=== PATIENT | male | born 1955 | race African-American/Black ===

== ENCOUNTER 2019-10-06 00:37 | Outpatient (CLI) | payer OTHER, SELFPAY ==
[2019-10-06 16:19] LABS: SARS-CoV-2 RNA PCR Negative
== END 2019-10-06 00:38 | disposition home or self-care (01) ==
LOC: ANHCOVIDDT 00:37
PROVIDERS: PCP Family Medicine; Visit Provider Internal Medicine Gastroenterology
DX: Z01.818 Encounter for other preprocedural examination (principal); Z11.59 Encounter for screening for other viral diseases
CPT/HCPCS: 87635; C9803; U0003

== ENCOUNTER 2019-10-09 00:18 | Day surgery (SDC) | payer OTHER, SELFPAY ==
[2019-10-03 13:47] VITALS: BMI 34.1
[2019-10-09 07:35] VITALS: BP 140/105; PULSE 113; RESP 18; TEMP 35.8; O2SAT 98
[2019-10-09] MEDS: LACTATED RINGERS 1,000 ML 150 ML IV CONT (07:51)
[2019-10-09 07:54] LABS: Glucose Point of Care 126 (65-105)
--- NOTE | 2019-10-09 08:00 | WPDANESEPPF ---
Anes - Initial Pre Proc Eval Procedure: Operation Date: 10/09/19 08:45 Proposed Procedures p Screening Colonoscopy - Travis Umaña MD Date/Time: 10/09/19 08:00 Surgeon: Travis Umaña MD Pre Op Diagnosis: Neoplasm Screening Patient Data Age: 63 Gender: M Height: 1.78 m Weight: 103.8 kg Last Vital Signs Temp 35.8 C L 10/09/19 07:35 Pulse 113 H 10/09/19 07:35 Resp 18 10/09/19 07:35 BP 140/105 H 10/09/19 07:35 Pulse Ox 98 10/09/19 07:35 Allergies Allergy/AdvReac Type Severity Reaction Status Date / Time atropine [From ] Allergy Mild Unknown Verified 10/09/19 07:34 hyoscyamine [From ] Allergy Mild Unknown Verified 10/09/19 07:34 phenobarbital [From ] Allergy Mild Unknown Verified 10/09/19 07:34 scopolamine [From ] Allergy Mild Unknown Verified 10/09/19 07:34 Home Medications Medication Instructions Recorded Confirmed Type lisinopril 20 1 tablet PO DAILY #90 tablet 09/27/19 10/09/19 Rx mg-hydrochlorothiazide 25 mg tablet amlodipine [Norvasc] 5 mg PO DAILY 10/03/19 10/09/19 History atorvastatin [Lipitor] 10 mg PO QPM 10/03/19 10/09/19 History metformin [Glucophage] 1,000 mg PO BID 10/03/19 10/09/19 History peg 3350-electrolytes 236 240 ml PO Q10M #4000 ml 10/05/19 Rx gram-22.74 gram-6.74 gram-5.86 gram solution Laboratory Tests 10/09/19 07:50 POC Capillary Glucose 126 mg/dl H mg/dl (65-105) Patient hx anesthesia problems: none Family hx anesthesia problems: none PMFSH Past Medical History Medical History (Updated 10/09/19 @ 08:02 by Valentin Roman MD) Allergies Diabetes Essential (primary) hypertension Hypercholesterolemia Obesity Seasonal allergic rhinitis Surgical History Surgical History No pertinent past surgical history Social History Social History (Reviewed 09/27/19 @ 14:28 by Kim Stephens Smoking status: Never smoker Second hand tobacco smoke exposure: No Alcohol intake: never Substance use: never Substance use type: does not use Gender identity (if verbalized by the patient): Male Sexual Orientation (if Verbalized by the Patient): Straight or Heterosexual Anes - Eval Final PreProcedure Day of Procedure 10/09/19 08:00 Patient weight: obese Heart: regular rate and rhythm Lungs: clear to auscultation and normal air movement Airway: Mallampati scale class II Neurological: alert and oriented Last oral intake: >/= 8 hours ASA classification: III Emergent: no Anesthetic plan: proceed Anesthesia type and monitoring: general GIVS Informed Consent: The patient's anesthetic plan and its attendant risks and benefits were discussed with the patient/family/POA. Questions were solicited and answers provided to the satisfaction of the patient/family/POA.
--- NOTE | 2019-10-09 08:41 | PM.HPGS ---
History of Present Illness History of Present Illness Consent: Risks, benefits, and alternatives have been discussed and questions answered. Patient agrees to proceed with procedure. Chief complaint: Neoplasm Screening Narrative: Sang Clark is a 63 year old male here for first screening colonoscopy Review of Systems Constitutional: Constitutional: Denies headache(s) and Denies weakness Eyes: Eyes: Denies blurry vision ENT: Reports Normal hearing present, Denies headache(s) and Denies neck pain Cardiovascular: Cardiovascular: Denies chest pain and Denies dyspnea Respiratory: Respiratory: Denies dyspnea Gastrointestinal: Gastrointestinal: Reports no additional gastrointestinal complaints Genitourinary: Genitourinary: Denies dysuria Musculoskeletal: Musculoskeletal: Denies neck pain Integumentary/Breasts: Skin/Breast: Denies dry skin Neurologic: Reports Normal hearing present, Denies headache(s) and Denies weakness Psychiatric: Psychiatric: Denies anxiety Endocrine: Endocrine: Denies change in body appearance Hematologic/Lymphatic: Hematologic/Lymphatic: Denies easy bleeding Allergic/Immunologic: Allergic/Immunologic: Denies urticaria PMF Past Medical History Medical History (Updated 10/09/19 @ 08:42 by Travis Umaña MD) Allergies Colon cancer screening Diabetes Essential (primary) hypertension Hypercholesterolemia Obesity Seasonal allergic rhinitis Surgical History Surgical History No pertinent past surgical history Social History Social History Smoking status: Never smoker Second hand tobacco smoke exposure: No Alcohol intake: never Substance use: never Substance use type: does not use Gender identity (if verbalized by the patient): Male Sexual Orientation (if Verbalized by the Patient): Straight or Heterosexual Meds Home Medications and Allergies Home Medications Medication Instructions Recorded Confirmed Type lisinopril 20 1 tablet PO DAILY #90 tablet 09/27/19 10/09/19 Rx mg-hydrochlorothiazide 25 mg tablet amlodipine [Norvasc] 5 mg PO DAILY 10/03/19 10/09/19 History atorvastatin [Lipitor] 10 mg PO QPM 10/03/19 10/09/19 History metformin [Glucophage] 1,000 mg PO BID 10/03/19 10/09/19 History peg 3350-electrolytes 236 240 ml PO Q10M #4000 ml 10/05/19 Rx gram-22.74 gram-6.74 gram-5.86 gram solution Allergies Allergy/AdvReac Type Severity Reaction Status Date / Time atropine [From ] Allergy Mild Unknown Verified 10/09/19 07:34 hyoscyamine [From ] Allergy Mild Unknown Verified 10/09/19 07:34 phenobarbital [From ] Allergy Mild Unknown Verified 10/09/19 07:34 scopolamine [From ] Allergy Mild Unknown Verified 10/09/19 07:34 Vital Signs Vital Signs - 24 hr 10/09/19 07:35 Temperature 96.5 F L Pulse Rate 113 H Respiratory Rate 18 Blood Pressure 140/105 H Pulse Oximetry 98 Exam Const: General: comfortable and no acute distress HENMT: General nose exam: Normal nares present Eyes: General: appearance normal, both eyes and all related structures Neck: Neck: no JVD Resp: Auscultation: clear to auscultation bilaterally Cardio: Rate: regular rate Rhythm: regular rhythm GI: Inspection: non-distended GI Palp: Yes Soft to palpation Skin: General skin exam: normal color Neuro: General: gait normal Speech: normal speech Extrem: General: normal to inspection Psych: Mental Status: mental status grossly normal Assessment and Plan Assessment and plan (1) Colon cancer screening: Code(s): Z12.11 - Encounter for screening for malignant neoplasm of colon Status: Acute Assessment and Plan: will proceed with colonoscopy (2) Diabetes: Code(s): E11.9 - Type 2 diabetes mellitus without complications Status: Acute (3) Essential (primary) hypertension:
--- NOTE | 2019-10-09 08:50 | SUR.OPER ---
0876 UPDATED FAMILY ([facility]) TAKING PATIENT TO PROCEDURE ROOM
[2019-10-09 09:06] VITALS: BP 139/81; PULSE 97; RESP 18; O2SAT 96
[2019-10-09 09:16] VITALS: BP 90/55; PULSE 94; RESP 16; O2SAT 96
[2019-10-09 09:26] VITALS: BP 112/49; PULSE 90; RESP 18; O2SAT 98
[2019-10-09 09:29] LABS: Glucose Point of Care 119 (65-105)
== END 2019-10-09 09:48 | disposition home or self-care (01) ==
PROVIDERS: PCP Family Medicine; Visit Provider Internal Medicine Gastroenterology
PROC: 0DJD8ZZ Inspection of Lower Intestinal Tract, Via Natural or Artificial Opening Endoscopic (ICD-10-PCS; CPT 45378; principal; 2019-10-09 08:45)
DX: Z12.11 Encounter for screening for malignant neoplasm of colon (principal); K63.5 Polyp of colon; K57.30 Diverticulosis of large intestine without perforation or abscess without bleeding; K64.8 Other hemorrhoids; I10 Essential (primary) hypertension; E11.9 Type 2 diabetes mellitus without complications; E78.00 Pure hypercholesterolemia, unspecified; E66.9 Obesity, unspecified; Z68.32 Body mass index [BMI] 32.0-32.9, adult; Z79.84 Long term (current) use of oral hypoglycemic drugs
CPT/HCPCS: 45385; 88305; J2704; J7120

== ENCOUNTER 2022-04-02 09:55 | Outpatient (CLI) | payer OTHER, SELFPAY ==
[2022-04-02 19:07] LABS: Kit Draw Collected
== END 2022-04-02 09:56 | disposition home or self-care (01) ==
LOC: ANHGOSHLAB 09:56
PROVIDERS: PCP Family Medicine; Visit Provider Nurse Practitioner
DX: E11.9 Type 2 diabetes mellitus without complications (principal); E78.5 Hyperlipidemia, unspecified; E55.9 Vitamin D deficiency, unspecified; Z12.5 Encounter for screening for malignant neoplasm of prostate; I10 Essential (primary) hypertension
CPT/HCPCS: 36415

== ENCOUNTER 2022-09-07 09:26 | Outpatient (CLI) | payer OTHER, SELFPAY ==
[2022-09-07 10:41] LABS: Kit Draw Collected
== END 2022-09-07 09:27 | disposition home or self-care (01) ==
LOC: ANHGOSHLAB 09:27
PROVIDERS: PCP Family Medicine; Visit Provider Nurse Practitioner
DX: E78.5 Hyperlipidemia, unspecified (principal); E11.9 Type 2 diabetes mellitus without complications; I10 Essential (primary) hypertension
CPT/HCPCS: 36415

== ENCOUNTER 2024-03-22 08:54 | Outpatient (CLI) | payer MEDICARE, OTHER, SELFPAY ==
[2024-04-15 13:12] VITALS: BMI 29.2
--- NOTE | 2024-04-15 13:12 | WPDHOMESLEEP ---
Sleep Study - Home Unattended Date of Study: 03/22/24 Ordering Provider: Jay Barry MD Interpreting Provider: Darling Garcia DO Home Sleep Study Type: Watch PAT Height: 1.8 m Weight: 95.254 kg Body Mass Index: 29.2 Neck Circumference (inches): 18.25 Frederick: 12 Reason for Sleep Study Daytime hypersomnia Sleep History The patient is a 68-year-old male that had a sleep study ordered by his primary care physician for evaluation of sleep apnea. The patient snores loudly, has excessive daytime sleepiness as well as difficulty falling and staying asleep. The patient denies choking or gasping at night. He denies having interruptions and breathing while asleep. He denies having trouble breathing on his back. He denies morning headaches. 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 He denies nocturnal heartburn. He urinates twice throughout the night. He does have difficulty returning to sleep if he wakes up throughout the night. He denies any hypnotic or sedative use. He denies feeling anxious about sleep. He does feel tired or sleepy during the day. He does feel tired in the morning. He does have the urge to fall asleep during the day. He denies feeling drowsy while driving. He denies sleep paralysis, cataplexy and hypnagogic / hypnopompic hallucinations. He denies clenching or grinding his teeth. He denies kicking or jerking his legs excessively. He denies having a restless feeling in his legs. He goes to bed 11:30 p.m. on both weekdays and weekends. It takes him 90 minutes to fall asleep. He gets 6 hours of sleep per night. His sleep is somewhat more restorative on his days off. He denies taking any planned naps. He denies dream enactment behavior. He denies sleep walking. He denies consuming caffeinated beverages throughout the day. He denies tobacco and alcohol use. He denies exercising on a regular basis. 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 Smoking status: Never smoker Second hand tobacco smoke exposure: No Alcohol intake: never Substance use: never Substance use type: does not use Lack of Transportation: No Lack of Food: Never True Current Housing: I Have Housing Concerned About Future Housing: No Difficulty Paying Gas/Electric Bills: No Difficulty Paying for Meds: No Currently Unemployed: No Education: Master's Degree or Higher Difficulty w/ Childcare or Family Care: No Living arrangements: alone Occupation/Education: occupation Additional occupation/education comments: [employer] for 35 yrs. Gender identity (if verbalized by the patient): Male Sexual Orientation (if Verbalized by the Patient): Straight or Heterosexual Agree to blood products: Yes Medications Home Medications ?Medication ?Instructions ?Recorded ?Confirmed ?Type loratadine 10 mg tablet (Claritin) 10 mg PO DAILY 04/02/22 12/28/23 History albuterol sulfate 90 mcg/actuation 1 puff inhalation Q4H PRN 03/01/23 12/28/23 Rx aerosol inhaler (ProAir HFA) shortness of breath or wheezing #8.5 grams blood sugar diagnostic #100 ea 04/05/23 12/28/23 Rx blood-glucose meter (Blood Glucose #1 ea 04/05/23 12/28/23 Rx Monitoring kit) blood-glucose sensor (Dexcom G7 #4 ea 04/05/23 12/28/23 Rx Sensor device) cholecalciferol (vitamin D3) 50 50 mcg PO DAILY 04/05/23 12/28/23 History mcg (2,000 unit) tablet fluticasone propionate 50 1 spray intranasal DAILY 04/05/23 12/28/23 History mcg/actuation nasal spray,suspension lancets 33 gauge #100 ea 04/05/23 12/28/23 Rx amlodipine 5 mg tablet (Norvasc) 5 mg PO DAILY #90 tabs 10/04/23 12/28/23 Rx lisinopril 20 1 tablet PO DAILY #90 tabs 10/04/23 12/28/23 Rx mg-hydrochlorothiazide 25 mg tablet tirzepatide 15 mg/0.5 mL 15 mg (0.5 mL) .Route WEEKLY #2 mL 03/27/24 Rx subcutaneous pen injector atorvastatin 10 mg tablet 10 mg PO QHS #90 tabs 04/10/24 Rx metformin 500 mg tablet,extended 1,000 mg (2 x 500 mg) PO BID #360 04/10/24 Rx release 24 hr tabs Sleep Procedure The sleep study was completed using AttenexT a technically adequate device with seven channels: peripheral arterial tone, actigraphy, body position, snore, respiratory movement, pulse oximetry, sleep staging, and heart rate. Prior to using the device, the patient received verbal and written instructions for its application and was provided with the help desk phone number for additional telephonic instruction with 24-hour availability of qualified personnel to answer questions. The study was scored using CMS guidelines. Sleep Architecture The total recording time is 7 hrs, 16 min. The total sleep time is 6 hrs, 30 min. Sleep latency is 25 minutes. REM latency is 212 minutes. The patient had 7 episodes of waking. Sleep architecture shows 16.0% deep sleep, 61.3% light sleep, and (as % Total Sleep Time) showed NREM (Light 61.3%; Deep 16.0%), and a 22.7% stage REM. The patient spent 65.1% of total sleep time in the supine position. Sleep efficiency was 89.45. Respiratory Analysis The overall AHI (pAHI 4%:) is 16.2. The central AHI is 4.1. The AHI was 18.8 in NREM and 7.6 in REM sleep. The AHI was 23.5 in Supine and 2.3 in Non-supine sleep. Percent of Pablo Segura respirations is 0.0. Oximetry Data The oxygen desaturation index (REED 4%:) is 16.2. The mean saturation is 95%, and the lowest saturation is 84%. Time spent with saturation < 88% is 2.9 minutes. Snoring Profile Snoring average intensity is 42 dB. The patient snored above 45 decibels for 53.9 minutes, 13.8% of sleep time. Cardiac Profile The average pulse rate is 74 beats per minutes. The lowest pulse rate is 47 bpm. The highest pulse rate reported is 112 bpm. Atrial fibrillation was not detected. Premature beats occur 0.2 per minute. Assessment and Plan Assessment and Plan (1) STEVE (obstructive sleep apnea): Code(s): G47.33 - Obstructive sleep apnea (adult) (pediatric) Status: Acute Assessment and Plan: The patient had an overall AHI of 16.2 with desaturation down to 84%. This is consistent with moderate sleep apnea. The patient had 26 central apneas resulting in a central apnea index of 4.1 which is on the higher end of normal. Due to the elevated number of central apneas, the patient is not an ideal candidate for AutoPAP. AutoPAP can increase the frequency and severity of central apneas. I recommend that the patient have a CPAP titration with the use of a hypnotic (Lunesta 2-3 mg or Ambien 5-10 mg) to ensure we obtain enough sleep data find an optimal pressure. Data The data obtained during this sleep study is adequate for interpretation. Certification This sleep study has been reviewed by a board certified sleep medicine physician.
== END 2024-03-23 15:08 | disposition home or self-care (01) ==
LOC: ANHCSM 08:55
PROVIDERS: PCP Family Medicine; Visit Provider Family Medicine
DX: G47.33 Obstructive sleep apnea (adult) (pediatric) (principal); R40.0 Somnolence
CPT/HCPCS: 95800

== ENCOUNTER 2024-08-16 08:45 | Outpatient (CLI) | payer OTHER, MEDICARE, SELFPAY ==
--- OUTSIDE RECORDS SUMMARY | 2024-08-16 08:58 | XMS_ITS | Clinical Summary ---
Author Organization [facility] Address [address] [place] [address] Care Team Providers Care Disc Inspector Name Role Phone Unavailable Primary Care Provider Unavailabl e Source Comments [facility],non-owned Affiliates and Associated Physician Practices is amultiple site organization consisting of ambulatory clinics and hospital sitesin [place], [place], [place] and [place]. This disclosure is being madepursuant to the Care Everywhere program and may not contain all information available regarding this patient. Last updated 18.[facility] Allergies Active Allergy Reactions Criticality Noted Date Comments 05/17/2016 Medications * Be aware that medications may not be up to date on this document. Alwaysverify current medications with the patient. amLODIPine (NORVASC) 5 MG tablet Take 1 Tab by mouth once daily 7 Tab 05/17/2016 Active Social History Tobacco Use Types Packs/Day Years Used Date Smoking Tobacco: Never Alcohol Use Standard Drinks/Week Comments No 0 (1 standard drink = 0.6 oz pur e alcohol) Sex and Gender Information Value Date Recorded Sex Assigned at Not on file Legal Sex Male 1:52 PM [employer] Gender Identity Not on file Sexual Orientation Not on file Last Filed Vital Signs Vital Sign Reading Time Taken Comments Blood Pressure 155/91 05/17/2016 2:00 PM [employer] Pulse - - Temperature 36.7 C (98.1 F) 05/17/2016 2:03 PM [employer] Respiratory Rate 14 05/17/2016 2:03 PM [employer] Oxygen Saturation 99% 05/17/2016 2:00 PM [employer] Inhaled Oxygen Concentration - - Weight 81.6 kg (180 lb) 05/17/2016 2:03 PM [employer] Height 180.3 cm (5' 11 ) 05/17/2016 2:03 PM [employer] Body Mass Index 25.1 05/17/2016 2:03 PM [employer] Plan of Treatment Health Maintenance Due Date Last Done Comments COLOGUARD (AGES 45-75) - COL ON CA SCREENING 1954 COLON MONITORING 1954 COLONOSCOPY - COLON CA SCREENING 1954 CT COLONOGRAPHY - COLON CA SCREENING 1954 Colorectal Cancer Screening 1954 FIT - COLON CA SCREENING 1954 FLEX SIG - COLON CA SCREENING 1954 LIPID TESTING 1954 HEPATITIS C SCREENING 11/12/1972 DTAP/TDAP/TD VACCINES (1 - Tdap) 1973 PNEUMOCOCCAL VACCINE 50+ (1 of 1 - PCV) 2004 ZOSTER VACCINE (1 of 2) 2004 COVID-19 VACCINE (1 - 2023-2 5 season) 2023 DEPRESSION SCREENING 04/18/2024 INFLUENZA VACCINE (Season Ended) 2024 Respiratory Syncytial Virus (RSV) Vaccine Pt: or over 60 yrs (1 - 1-dose 75+ series) 2029 HEPATITIS B VACCINE Aged Out No longe r eligible based on patient's age to complete this topic HIB VACCINE Aged Out No longer eligi ble based on patient's age to complete this topic HPV VACCINE Aged Out No longer eligi ble based on patient's age to complete this topic MENINGOCOCCAL (Group B) VACC INE SHARED DECISION-MAKING Aged Out No longer eligibl e based on patient's age to complete this topic MENINGOCOCCAL GROUPS A/C/Y/W VACCINE Aged Out No longer eligible b ased on patient's age to complete [place] [address] [facility]
[2024-09-13 12:45] VITALS: BMI 28.7
--- NOTE | 2024-09-13 12:45 | WPDSLEEPSTUD ---
Sleep Study Date of Study: 08/16/24 Ordering Provider: Jay Barry MD Interpreting Physician: Darling Garcia DO Sleep Study Type: CPAP Titration Height: 1.78 m Weight: 90.718 kg Body Mass Index: 28.7 Neck Circumference (inches): 17 [place]: 12 Reason for Sleep Study Watch[employer] home sleep test on 03/22/2024 showed an overall AHI of 16.2 with desaturation down to 84%. BARB of 4.1. Sleep History The patient is a 68-year-old male that had a sleep study ordered by his primary care physician for evaluation of sleep apnea. The patient snores loudly, has excessive daytime sleepiness as well as difficulty falling and staying asleep. The patient denies choking or gasping at night. He denies having interruptions and breathing while asleep. He denies having trouble breathing on his back. He denies morning headaches. He does have a drier and pulverizer tender sore mouth/ throat in the morning. He denies nocturnal heartburn. He urinates twice throughout the night. He does have difficulty returning to sleep if he wakes up throughout the night. He denies any hypnotic or sedative use. He denies feeling anxious about sleep. He does feel tired or sleepy during the day. He does feel tired in the morning. He does have the urge to fall asleep during the day. He denies feeling drowsy while driving. He denies sleep paralysis, cataplexy and hypnagogic / hypnopompic hallucinations. He denies clenching or grinding his teeth. He denies kicking or jerking his legs excessively. He denies having a restless feeling in his legs. He goes to bed 11:30 p.m. on both weekdays and weekends. It takes him 90 minutes to fall asleep. He gets 6 hours of sleep per night. His sleep is somewhat more restorative on his days off. He denies taking any planned naps. He denies dream enactment behavior. He denies sleep walking. He denies consuming caffeinated beverages throughout the day. He denies tobacco and alcohol use. He denies exercising on a regular basis. 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 Smoking status: Never smoker Second hand tobacco smoke exposure: No Alcohol intake: never Substance use: never Substance use type: does not use Lack of Transportation: No Lack of Food: Never True Current Housing: I Have Housing Concerned About Future Housing: No Difficulty Paying Gas/Electric Bills: No Difficulty Paying for Meds: No Currently Unemployed: No Education: Master's Degree or Higher Difficulty w/ Childcare or Family Care: No Living arrangements: alone Occupation/Education: occupation Additional occupation/education comments: [employer] for 35 yrs. Gender identity (if verbalized by the patient): Male Sexual Orientation (if Verbalized by the Patient): Straight or Heterosexual Agree to blood products: Yes Medications Home Medications ?Medication ?Instructions ?Recorded ?Confirmed ?Type loratadine 10 mg tablet (Claritin) 10 mg PO DAILY 04/02/22 05/09/24 History albuterol sulfate 90 mcg/actuation 1 puff inhalation Q4H PRN 03/01/23 05/09/24 Rx aerosol inhaler (ProAir HFA) shortness of breath or wheezing #8.5 grams blood sugar diagnostic #100 ea 04/05/23 05/09/24 Rx blood-glucose meter (Blood Glucose #1 ea 04/05/23 05/09/24 Rx Monitoring kit) cholecalciferol (vitamin D3) 50 50 mcg PO DAILY 04/05/23 05/09/24 History mcg (2,000 unit) tablet fluticasone propionate 50 1 spray intranasal DAILY 04/05/23 05/09/24 History mcg/actuation nasal spray,suspension lancets 33 gauge #100 ea 04/05/23 05/09/24 Rx atorvastatin 10 mg tablet 10 mg PO QHS #90 tabs 04/10/24 05/09/24 Rx metformin 500 mg tablet,extended 1,000 mg (2 x 500 mg) PO DAILY 05/10/24 Rx release 24 hr #180 tabs amlodipine 5 mg tablet (Norvasc) 5 mg PO DAILY #90 tabs 05/28/24 Rx azithromycin 250 mg tablet See Rx Instructions PO .COMPLEX #6 06/05/24 Rx (Zithromax Z-Yasmany) tabs lisinopril 20 1 tablet PO DAILY #90 tabs 06/06/24 Rx mg-hydrochlorothiazide 25 mg tablet tirzepatide 15 mg/0.5 mL 15 mg (0.5 mL) subcut WEEKLY #6 mL 06/06/24 Rx subcutaneous pen injector blood-glucose sensor (Dexcom G7 #9 ea 07/04/24 Rx Sensor device) blood-glucose sensor (FreeStyle #6 ea 07/06/24 Rx Imelda 3 Sensor device) Sleep Procedure A full night CPAP Titration using the [employer] multi-channel system recorded the standard physiologic parameters including EEG, EOG, submentalis EMG, anterior tibialis EMG, EKG, body position, nasal and oral airflow using nasal pressure sensor and thermistor.? Respiratory parameters of chest and abdominal movements were recorded with Respiratory Inductance Plethysmography belts. Oxygen saturation was recorded by pulse oximetry. Video monitoring was also performed. Sleep stages, periodic limb movements, and EEG arousals were scored in 30 second epochs according to the criteria of the AASM Scoring Manual. The Apnea-Hypopnea Index was calculated using CMS guidelines for definition of hypopnea with 4% O2 desaturations while scoring respiratory events. Sleep Architecture The total recording time was 432.8 minutes.? The total sleep time was 374.0 minutes. Sleep latency was 6.4 minutes. REM latency was 91.5 minutes. Sleep efficiency was 86.4%. The patient had 23 awakenings for an awakening index of 3.7. Wake after Sleep Onset time was 52.0 minutes. The patient spent 22.0 minutes, 5.9% of total sleep time in Stage N1. The patient spent 219.5 minutes, 58.7% in Stage N2. The patient spent 16.5 minutes, 4.4% in Stage N3. The patient spent 116.0 minutes, 31.0% in Stage REM. Respiratory Analysis The patient had 36 hypopneas, 60 obstructive apneas and 1 central apnea for an overall Apnea Hypopnea Index of 15.6 events per hour. The REM Apnea Hypopnea Index was 19.7. The NREM Apnea Hypopnea Index was 13.7. The patient had a Central Apnea Hypopnea Index of 0.2. There was no evidence of Pablo-Segura Respirations. The patient was started on CPAP 5 cm H2O and titrated to CPAP 14 cm H2O due to obstructive apneas and hypopneas. The patient was able to fall asleep starting on CPAP 5 cm H2O. The patient was able to achieve REM sleep starting on CPAP 7 cm H2O. The patient was able to achieve a residual AHi less than 5 with both NREM and REM sleep in the supine position on the final pressure setting. On CPAP 14 cm H2O, the patient spent 39 minutes in NREM and 74.5 minutes in REM with 1 central apnea and 3 hypopneas, resulting in an AHI of 2.1. The patient had a sleep efficiency of 81.9% on this pressure setting. Arousals There were 142 total arousals for an arousal index of 22.8. There were 38 spontaneous arousals for an index of 6.1. ?There were 58 arousals due to respiratory events for an index of 9.3. There were 11 arousals due to periodic limb movements for an index of 1.8.? There were 35 arousals due to isolated limb movements for an index of 5.6. Periodic Limb Movements The patient had 79 isolated limb movements with an index of 12.7. The patient had 34 periodic limb movements with index of 5.5. Patient had a total of 113 limb movements with a total limb movement index of 18.1. Oximetry Data The patient had an average oxygen saturation of 95.4% in sleep with a minimum oxygen saturation of 80.0% and a maximum oxygen saturation of 98.0%. The patient had 92 oxygen desaturations that were 4% or greater resulting in an Oxygen Desaturation Index of 14.8.? The patient spent 6.9 minutes, 1.6% of total sleep time with an oxygen saturation below 88%. Snoring Profile Mild snoring was present intermittently in the beginning of the study. The snoring resolved once the patient was titrated to 13 cm H2O. Cardiac Profile The EKG showed normal sinus rhythm with occasional PVCs. The patient had an average pulse rate of 77.0 bpm with a minimum pulse rate of 67.0 bpm and a maximum pulse rate of 96.0 bpm. ? EEG Profile No signs of seizure activity seen. Assessment and Plan Assessment and Plan (1) STEVE (obstructive sleep apnea): Code(s): G47.33 - Obstructive sleep apnea (adult) (pediatric) Status: Acute Assessment and Plan: The patient was started on CPAP 5 cm H2O and titrated to CPAP 14 cm H2O due to obstructive apneas and hypopneas. The patient's sleep apnea resolved on the final pressure setting. I recommend that the patient be prescribed CPAP 14 cm H2O, size medium Resmed AirTouch F20 full face mask, CPAP filters/tubing and heated humidity. This should be used with all episodes of sleep.? Compliance should be reviewed within 31-90 days of starting therapy for usage greater than 4 hours per night greater than 70% of the nights. The patient should be asked about symptoms such as?excessive daytime sleepiness, quality of sleep, decreased nocturia, increased?mental functioning such as memory, mood, and concentration. Data The data obtained during this sleep study is adequate for interpretation. Certification This sleep study has been reviewed by a board certified sleep medicine physician.
== END 2024-08-17 06:30 | disposition home or self-care (01) ==
PROVIDERS: PCP Family Medicine; Visit Provider Family Medicine
DX: G47.31 Primary central sleep apnea (principal); G47.33 Obstructive sleep apnea (adult) (pediatric)
CPT/HCPCS: 95811

== ENCOUNTER 2024-11-07 11:32 | Outpatient (CLI) | payer OTHER, MEDICARE, SELFPAY ==
--- OUTSIDE RECORDS SUMMARY | 2024-11-07 11:35 | XMS_ITS | Clinical Summary ---
Author Organization [facility] [employer] Address [address] 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 [employer],non-owned Affiliates and Associated Physician Practices is amultiple site organization consisting of ambulatory clinics and hospital sitesin [place], [place], [place] and [place]. This disclosure is being madepursuant to the Care Everywhere program and may not contain all information available regarding this patient. Last updated 18.[facility] [employer] Allergies Active Allergy Reactions Criticality Noted Date [...] on file Legal Sex Male 1:52 PM RN RELIEF CHARGE Gender Identity Not on file Sexual Orientation Not on file Last Filed Vital Signs Vital Sign Reading Time Taken Comments Blood Pressure 155/91 05/17/2016 2:00 PM RN RELIEF CHARGE Pulse - - Temperature 36.7 C (98.1 F) 05/17/2016 2:03 PM RN RELIEF CHARGE Respiratory Rate 14 05/17/2016 2:03 PM RN RELIEF CHARGE Oxygen Saturation 99% 05/17/2016 2:00 PM RN RELIEF CHARGE Inhaled Oxygen Concentration - - Weight 81.6 kg (180 lb) 05/17/2016 2:03 PM RN RELIEF CHARGE Height 180.3 cm (5' 11) 05/17/2016 2:03 PM RN RELIEF CHARGE Body Mass Index 25.1 05/17/2016 2:03 PM RN RELIEF CHARGE Plan of Treatment Health Maintenance Due Date [...] season) 2023 DEPRESSION SCREENING 04/18/2024 INFLUENZA VACCINE (#1) 2024 Respiratory Syncytial Virus (RSV) Vaccine Pt: [...] patient's age to complete [place] [address] [facility] Address: [address] [place] [address]
[2024-11-07 15:16] LABS: Hemoglobin A1C 5.5 % (<5.7)
[2024-11-07 15:28] LABS: Alanine Aminotransferase 25 U/L (6-50); Albumin Level 4.6 g/dL (3.5-5.1); Alkaline Phosphatase 120 U/L (38-126); Anion Gap 10 mmol/L (4-12); Aspartate Amino Transferase 27 U/L (17-59); Bilirubin,Total 0.8 mg/dL (0.2-1.3); Blood Urea Nitrogen 18 mg/dL (9-20); Calcium 10.4 mg/dL (8.4-10.2); Carbon Dioxide 29 mmol/L (22-30); Chloride 102 mmol/L (98-107); Estimated Glomerular Filt Rate 53; Glucose 115 mg/dL (65-110); Potassium 4.3 mmol/L (3.4-5.0); Sodium 141 mmol/L (137-145); Total Protein 7.8 g/dL (6.3-8.2)
== END 2024-11-07 11:33 | disposition home or self-care (01) ==
LOC: ANHGOSHLAB 11:33
PROVIDERS: PCP Family Medicine; Visit Provider Family Medicine
DX: E11.9 Type 2 diabetes mellitus without complications (principal); I10 Essential (primary) hypertension
CPT/HCPCS: 36415; 80053; 83036